=== PATIENT | male | born 1940 | race Caucasian/White ===

== ENCOUNTER 2016-04-16 14:00 | Emergency (ER) | payer MEDICARE ==
[2015-09-25 12:52] VITALS: BMI 28.2
[2016-04-16 14:33] LABS: BASOPHILS 0.3 % (0.0-2.0); EOSINOPHILS 0.5 % (0-7); HEMATOCRIT 40.5 % (42.0-54.0); HEMOGLOBIN 13.8 g/dL (13.5-17.5); IMMATURE GRANULOCYTES 0.3 % (0-5); LYMPHOCYTES 18.1 % (15-50); MCH 31.5 pg (26.0-34.0); MCHC 34.1 g/dL (31.0-37.0); MCV 92.5 fL (80.0-100.0); MONOCYTES 5.6 % (2-11); NEUTROPHILS 75.2 % (40-80); PLATELET COUNT 111 10x3/uL (130-400); RBC 4.38 10x6/uL (4.20-6.10); RDW 13.2 % (11.5-14.5); WBC 5.9 10x3/uL (4.8-10.8)
[2016-04-16 14:51] LABS: ALBUMIN 3.8 g/dL (3.4-5.0); ALKALINE PHOSPHATASE 49 U/L (46-116); ALT (SGPT) 33 U/L (10-68); BILIRUBIN - TOTAL 0.77 mg/dL (0.2-1.3); CALC OSMOLALITY 289 mosm/kg (275-300); CALCIUM 9.5 mg/dL (8.5-10.1); CARBON DIOXIDE 24.4 mmol/L (21.0-32.0); CHLORIDE - SERUM 106 mmol/L (98-107); CREATININE - SERUM 1.2 mg/dL (0.6-1.3); POTASSIUM - SERUM 3.8 mmol/L (3.5-5.1); PROTEIN - SERUM 6.8 g/dL (6.4-8.2); SODIUM 143 mmol/L (136-145); UREA NITROGEN 18 mg/dL (7-18); eGFR NON AFRICAN AMERICAN 63 mL/min (90-120)
[2016-04-16 14:53] LABS: GLUCOSE 148 mg/dL (74-106)
[2016-04-16 15:02] LABS: CHOL - HDL RATIO 4.1 ratio (2.3-4.9); CHOLESTEROL, TOTAL 169 mg/dL (0-200); CREATINE KINASE 305 UL (21-232); HDL CHOLESTEROL 41 mg/dL (32-96); LDL CHOLESTEROL 105 mg/dL (0-100); LDL-HDL RATIO 2.6 ratio (1.5-3.5); TRIGLYCERIDE 117 mg/dL (30-200)
[2016-04-16 15:03] LABS: TROPONIN-I < 0.017 ng/mL (0.000-0.060)
== END 2016-04-16 18:48 | disposition home or self-care (01) ==
LOC: D.ER 14:00
PROVIDERS: Emergency Medicine
DX: R07.9 Chest pain, unspecified (principal); R55 Syncope and collapse; R53.1 Weakness; Z95.0 Presence of cardiac pacemaker

== ENCOUNTER 2016-05-06 13:14 | Observation (INO) | payer MEDICARE ==
[~2016-05-06] VITALS: Ht 185.4 cm; Wt 100.2 kg
[2016-05-06 15:34] LABS: BASOPHILS 0.3 % (0.0-2.0); HEMATOCRIT 40.1 % (42.0-54.0); HEMOGLOBIN 13.5 g/dL (13.5-17.5); IMMATURE GRANULOCYTES 0.3 % (0-5); LYMPHOCYTES 19.5 % (15-50); MCH 31.3 pg (26.0-34.0); MCHC 33.7 g/dL (31.0-37.0); MEAN PLATELET VOLUME 10.9 fL (7.4-10.4); MONOCYTES 6.7 % (2-11); NEUTROPHILS 72.2 % (40-80); PLATELET COUNT 129 10x3/uL (130-400); RBC 4.31 10x6/uL (4.20-6.10); RDW 13.1 % (11.5-14.5)
[2016-05-06 16:01] LABS: ALBUMIN 3.6 g/dL (3.4-5.0); ALKALINE PHOSPHATASE 44 U/L (46-116); ALT (SGPT) 31 U/L (10-68); BILIRUBIN - TOTAL 0.46 mg/dL (0.2-1.3); CALC OSMOLALITY 282 mosm/kg (275-300); CALCIUM 8.8 mg/dL (8.5-10.1); CARBON DIOXIDE 25.9 mmol/L (21.0-32.0); CHLORIDE - SERUM 107 mmol/L (98-107); CREATININE - SERUM 1.1 mg/dL (0.6-1.3); POTASSIUM - SERUM 3.7 mmol/L (3.5-5.1); PROTEIN - SERUM 6.6 g/dL (6.4-8.2); SODIUM 142 mmol/L (136-145); UREA NITROGEN 16 mg/dL (7-18); eGFR NON AFRICAN AMERICAN 69 mL/min (90-120)
[2016-05-06 16:03] LABS: GLUCOSE 86 mg/dL (74-106)
[2016-05-06 16:13] LABS: CKMB 3.8 U/L (0.0-3.6); CREATINE KINASE 293 UL (21-232); TROPONIN-I 0.023 ng/mL (0.000-0.060)
--- NOTE | 2016-05-06 18:29 | NUR ---
PATIENT ARRIVED TO UNIT AT THIS TIME VIA GERAGUSTIN FROM ED. PATIENT BEING PLACED ON BED AT THIS TIME VIA JAVA DESIGNER AND ED NURSE. PATIENT AT BEDSIDE. 20 GAUGE TO LEFT HAND. CALL LIGHT WITH IN REACH. RESP EVEN AND UNLABORED. DENIES PAIN. NO DISTRESS UPON ARRIVAL AT THIS TIME.
[2016-05-06 18:34] VITALS: BP 110/89; Ht 185.4 cm; Wt 100.2 kg
[2016-05-06 20:11] VITALS: BP 110/89
[2016-05-07 02:18] VITALS: BP 102/73
--- NOTE | 2016-05-07 06:34 | NUR ---
PT BP 79/43 PULSE [address] CALLED PT INFOMRED TO STAY IN BED AND NOT GET UP AND IF NEEDED TO USE CALL LIGHT FOR ASSISTANCE PT AAOX4 AND PT STATED " YEA THIS HAPPENS TO ME ALOT ESPECCIALLY IF I DONT TAKE MY MEDICATIONS'
--- NOTE | 2016-05-07 06:35 | NUR ---
DR BREAKDOWN PERSON FOR DR PHAN CALLED AND RENARD FOR CALL BACK
[2016-05-07 06:42] VITALS: BP 79/43
--- NOTE | 2016-05-07 06:45 | NUR ---
SPOKE WITH GHULAM STOUT HUMAN RESOURCES BENEFITS ADMINISTRATOR AND ORDERS RECIVED FOR FLUID BOLUS AND FLORINEF TO BE ADMIN, BOLUS STARTED AND INFUSING AND WATING FOR FLORINEF TO ARRIVE TO FLOOR
--- NOTE | 2016-05-07 07:36 | NUR ---
INTRODUCED MYSELF TO PT PRIMARY RN FOR TODAYS SHIFT. PT IS ALERT AND ORIENTED RESTING QUIETLY SITTING UP IN BED. PT WAS HAVING A 500 CC BOLUS THAT JUST FINISHED, FLUSHED AND SL PT. DRSG CDI AND SWAB CAPS IN USE. PTS BP NOW UP TO 116/77 AND HR 99 CONTROLLED A.FIB. PT STATES HE IS HAVING DISCOMFORT IN HIS CHEST AND BLURRY VISION WHICH HAS HAPPENED MULTIPLE TIMES WITH HIS ORTHOSTATIC HYPOTENSION. PT RESTING NOW AND DENIES ANY FURTHER NEEDS AT THIS TIME. CL IN REACH, BED IN LOWEST, SIDE RAILS X2. WILL CPOC.
[2016-05-07 08:00] VITALS: BP 116/77
--- NOTE | 2016-05-07 09:30 | NUR ---
TELEMETRY MONITER TECH NOTIFIED ME OF PTS HR JUMPING BACK UP TO [address]ST HENNING AND HE STATED THAT HE IS AWARE AND THAT HE IS DISCHARGING PT WITH A NEW MED "BETAPACE" AND THAT HE DOESNT NEED ANYTHING ADDITIONAL DONE. TEACHING DONE TO PT AND PT STATES HE IS FEELING FINE. VSS STILL OTHER THAN HR BEING IRREGULAR UP AND DOWN. CL IN REACH, NO FURTHER NEEDS AT THIS TIME. WILL CTM.
[2016-05-07] MEDS ORDERED: COUMADIN6 MG PO (10:34)
[2016-05-07] MEDS ORDERED: MEGACE 20 MG TA20 MG PO (10:35)
[2016-05-07] MEDS ORDERED: GLYCOLAX527 GM PO (10:36)
[2016-05-07] MEDS ORDERED: FLORINEF 0.1 M0.1 MG PO (10:36)
[2016-05-07] MEDS ORDERED: OMEPRAZOLE40 MG PO (10:36)
[2016-05-07] MEDS ORDERED: BETAPACE 120 M120 MG PO (10:38)
--- NOTE | 2016-05-07 11:14 | NUR ---
D/C PTS L.HAND PIV WITH CATHETER TIP FULLY INTACT, CLEANSED WITH ALCOHOL PAD AND PLACED BANDAID. DISCHARGE TEACHING DONE AND PAPERS SIGNED. PT VERBALIZED UNDERSTANDING AND DENIES ANY FURTHER QUESTIONS OR NEEDS. PT COLLECTING HIS BELONGINGS AND IS ON HER WAY FOR TRANSPORTATION. NO FURTHER NEEDS.
[2016-05-07 11:50] VITALS: BP 102/65
--- NOTE | 2016-05-09 11:12 | EC ---
PATIENT:MILADY GOLDSMITH DATE OF SERVICE: 05/06/16 SEX: M MEDICAL RECORD: [id number] DATE OF : 42 LOCATION:D.M2 D.212 AGE OF PATIENT: 76 ADMISSION DATE: 05/06/16 REFERRING PHYSICIAN: INTERPRETING PHYSICIAN: FERNANDO STREET MD ECHOCARDIOGRAM REPORT ECHO CHARGES 4 ECHO COMPLETE CLINICAL DIAGNOSIS: HYPOTENSION ECHOCARDIOGRAPHIC MEASUREMENTS (adult normal given) AC root (d.<3.7cm) 4.1 LV Septum d (<1.2 cm> 1.6 Valve Excursion 2.3 LV Septum (systole) 2.2 Left Atria (s.<4.0cm> 3.6 LVPW d(<1.2cm) 1.4 RV (d.<2.3cm) 2.4 LVPW (sytole) 1.8 LV diastole(<5.6CM) 3.4 MV E-F(>70mm/sec) LV systole 2.6 LVOT Diameter 2.3 MV exc.(>10mm) Est.ejection fraction (50-75%) Pericardial Effusion N DOPPLER: LVIT A E 71.0 LA RVSP 41.0 LVOT 71.0 AOP1/2T Asc. Ao 85.0 RVOT 89.0 RA PA 112 AV Gradient Peak 2.9 AV Mean 1.5 AV Area 4.0 MV Gradient Peak 3.3 MV Mean 1.6 MV Area COMMENTS: Garbage Worker: Morris SOLISOE Internal Medicine Physician Assistant:Rosa Head TAPE# PACS DATE OF SERVICE: 05/07/2016 Echocardiogram FINDINGS: 1. Left ventricular chamber size is upper limits of normal, left ventricular systolic function is moderately reduced. Overall ejection fraction 30% to 35%. 2. Left atrium is within normal limits at 3.6 cm. Right atrium and right ventricular chamber sizes are mildly dilated. 3. Valvular structures have normal structure and motion. ECHOCARDIOGRAM REPORT [id number] MILADY GOLDSMITH 4. Doppler interrogation reveals mild mitral regurgitation, moderate tricuspid regurgitation, no other valvular insufficiency or stenosis and pulmonary systolic pressure is normal estimated at 41 mmHg. 5. No evidence of pericardial effusion or left ventricular thrombus. TRANSINT:[id number] Voice Confirmation ID: [id number] DOCUMENT ID: [id number] FERNANDO STREET MD at 1112 CC: [id number] DICTATION DATE: 05/08/16 1225 SHEET METAL TECHNICIAN: 05/08/16 2218 DIS IN 05/07/16 [facility] [address] [place] [address]
--- NOTE | 2016-05-09 13:36 | DS ---
PATIENT:MILADY GOLDSMITH :42 MEDICAL RECORD: [id number] DISCHARGE SUMMARY ADMISSION DATE: 05/06/16 DISCHARGE DATE: 05/07/16 ADMISSION DATE: 05/06/2016 DISCHARGE DATE: 05/07/2016 IMPRESSION: 1. Atrial fibrillation with rapid ventricular response. 2. Orthostatic hypotension, on Florinef. BRIEF HOSPITAL COURSE: Admitted with atrial fibrillation with RVR, this was abrupt onset, was feeling well prior to. He received IV Cardizem for rate control. Discussed options. He is quite symptomatic with an AFib, cover for CVA with Coumadin therapy. At this point in time, we will start sotalol 120 b.i.d. Hopefully, this will not exacerbate orthostasis, although this may be a give and take situation given his propensity towards ____ function and atrial fib. TRANSINT:[id number] Voice Confirmation ID: [id number] DOCUMENT ID: [id number] YORDY IBRAHIM MD at 1336 CC: [id number] DICTATION DATE: 05/07/16 0835 HYDROGEN POWER PLANT ENGINEER: 05/07/161950 DIS IN 05/07/16 [facility] [address] [place] [address]
== END 2016-05-07 12:00 | disposition home or self-care (01) ==
LOC: D.ER 13:14 → D.M2 17:19 → OBSVTIME 17:19 → D.M2 05-07 12:00
PROVIDERS: Emergency Medicine; ADMIT Internal Medicine Interventional Cardiology
DX: I48.91 Unspecified atrial fibrillation (principal); I95.1 Orthostatic hypotension

== ENCOUNTER 2016-09-27 13:30 | Emergency (ER) | payer MEDICARE ==
[2016-05-06 18:34] VITALS: BMI 28.8
[~2016-09-27 13:30] MED LIST: BETAPACE 120 M120 MG PO; COUMADIN6 MG PO; FLORINEF 0.1 M0.1 MG PO; GLYCOLAX527 GM PO; MEGACE 20 MG TA20 MG PO; OMEPRAZOLE40 MG PO
== END 2016-09-27 15:11 | disposition home or self-care (01) ==
LOC: D.ER 13:30
DX: S70.01XA Contusion of right hip, initial encounter (principal); W01.0XXA Fall on same level from slipping, tripping and stumbling without subsequent striking against object, initial encounter; Y93.89 Activity, other specified; Y92.830 Public park as the place of occurrence of the external cause

== ENCOUNTER 2017-01-27 07:35 | Emergency (ER) | payer MEDICARE ==
[2016-05-06 18:34] VITALS: BMI 28.8
[2017-01-27 08:23] LABS: BASOPHILS 0.6 % (0-2); HEMATOCRIT 39.9 % (42.0-54.0); HEMOGLOBIN 13.8 g/dL (13.5-17.5); IMMATURE GRANULOCYTES 0.2 % (0-5); LYMPHOCYTES 22.7 % (15-50); MCH 32.2 pg (26.0-34.0); MCHC 34.6 g/dL (31.0-37.0); NEUTROPHILS 65.5 % (40-80); RBC 4.29 10x6/uL (4.20-6.10); RDW 13.3 % (11.5-14.5); WBC 5.4 10x3/uL (4.8-10.8)
[2017-01-27 08:29] LABS: PLATELET COUNT 170 10x3/uL (130-400)
[2017-01-27 08:38] LABS: ALBUMIN 3.4 g/dL (3.4-5.0); ALKALINE PHOSPHATASE 65 U/L (46-116); ALT (SGPT) 82 U/L (10-68); BILIRUBIN - TOTAL 0.67 mg/dL (0.2-1.3); CALC OSMOLALITY 283 mosm/kg (275-300); CALCIUM 9.2 mg/dL (8.5-10.1); CARBON DIOXIDE 27.1 mmol/L (21.0-32.0); CHLORIDE - SERUM 108 mmol/L (98-107); GLUCOSE 96 mg/dL (74-106); POTASSIUM - SERUM 3.7 mmol/L (3.5-5.1); PROTEIN - SERUM 6.9 g/dL (6.4-8.2); SODIUM 143 mmol/L (136-145); UREA NITROGEN 11 mg/dL (7-18); eGFR NON AFRICAN AMERICAN 77 mL/min (90-120)
[2017-01-27 08:48] LABS: CHOL - HDL RATIO 4.8 ratio (2.3-4.9); CHOLESTEROL, TOTAL 134 mg/dL (0-200); CKMB 2.3 U/L (0.0-3.6); CREATINE KINASE 172 UL (21-232); HDL CHOLESTEROL 28 mg/dL (32-96); LDL CHOLESTEROL 78 mg/dL (0-100); LDL-HDL RATIO 2.8 ratio (1.5-3.5); PRO BNP 858 pg/mL (0-450); TRIGLYCERIDE 142 mg/dL (30-200); TROPONIN-I 0.016 ng/mL (0.000-0.060)
--- NOTE | 2017-01-30 16:56 | CN ---
PATIENT NAME:MILADY GOLDSMITH MEDICAL RECORD: [id number] : 42 LOCATION:.ER ADMIT DATE: ACCOUNT: [id number] CONSULTING PHYSICIAN: FERNANDO STREET MD REFERRING PHYSICIAN: KHADIJAH MANN MD DATE OF CONSULTATION: 01/27/2017 CARDIOLOGY CONSULT DIAGNOSES: 1. Paroxysmal atrial fibrillation. 2. Sick sinus syndrome. 3. Status post pacemaker. 4. Chest pain, compatible with angina. 5. Coumadin anticoagulation. HISTORY: This is a gentleman with past history of atrial fibrillation, sick sinus syndrome and pacer. No past history of ischemic heart disease. He underwent cardiac catheterization last year, revealing no significant disease. He has been having episodes of chest pressure, but these have been associated with recurrent atrial fibrillation. He is on sotalol 120 mg b.i.d. REVIEW OF SYSTEMS: The patient reports easy bruising but reports no swollen glands. The patient reports no fever, no night sweats, no significant weight gain, no significant weight loss. No significant exercise tolerance. The patient reports no dry eyes, no irritation, no vision change. The patient reports no difficulty hearing and no ear pain. The patient reports no frequent nose bleeds or nose and sinus problems. The patient reports on arm pain on exertion. No shortness of breath while lying down. No history of heart murmur. The patient reports no cough, no wheezing or coughing up blood. The patient reports no abdominal pain, no vomiting. Normal appetite. No diarrhea and not vomiting blood. No nausea and no constipation. The patient reports no incontinence. No difficulty urinating. No hematuria. No increased frequency. Patient reports no muscle aches. No weakness, no arthralgias, no back pain. No swelling of the extremities. The patient reports no abnormal mole, no jaundice, no rashes. Reports no loss of consciousness. No weakness and no numbness. No seizures, dizziness, or headaches. The patient reports no depression, no sleep disturbance, feeling safe in a relationship and no alcohol abuse. The patient reports on fatigue. Reports no runny nose or sinus pressure. No itching, no hives, and no frequent sneezing. PHYSICAL EXAMINATION: GENERAL APPEARANCE: Well-nourished, well-developed, appears stated age. Level of distress, comfortable. PSYCHIATRIC: Mental status, alert, normal affect. Orientation, oriented to time, place and person. EYES: Lids and conjunctiva, noninjected. No discharge, no pallor. ENT: Lips, teeth, gums, normal dentition. Oropharynx, no cyanosis, no pallor. NECK: Carotid arteries, bilateral normal upstroke, no bruits, no thrills. JUGULAR VEINS: No jugular venous pressure or distention. CERVICAL LYMPH NODES: Nontender, nonenlarged. THYROID: Not enlarged. Nontender. No nodules. LUNGS: Respiratory effort, unlabored. CHEST: Normal curvature. No thoracic deformity. No chest wall tenderness. Percussion, resonant. Auscultation, clear. No wheezes, no rales, no rhonchi. CONSULT REPORT [id number] MILADY GOLDSMITH CARDIOVASCULAR: Precordial exam, nondisplaced. No heaves or pericardial thrills. Rate and rhythm, regular. Heart sounds, normal S1, normal S2. No S3, no gallop, no rub. Systolic murmur, not heard. Diastolic murmur, not heard. EXTREMITIES: No cyanosis, no edema. Peripheral pulses, full and equal in all extremities, except as noted. No bruits appreciated. ABDOMEN: Soft, nondistended. Normal aorta. No bruit. Nontender. No masses. Liver, nontender, no hepatomegaly. Spleen, nontender, no splenomegaly. MUSCULOSKELETAL: No joint tenderness. No joint swelling. No erythema. NEUROLOGICAL: Normal gait, normal strength, normal tone. SKIN: Warm and dry. Pacemaker was interrogated. He has been having paroxysmal atrial fibrillation. We will increase the sotalol to 180 mg b.i.d. Follow up with [facility] in 1-2 weeks. TRANSINT:[id number] Voice Confirmation ID: [id number] DOCUMENT ID: [id number] FERNANDO STREET MD at 1656 CC: [id number] DICTATION DATE: 01/27/17 1222 CORRESPONDENCE SPECIALIST: 01/27/17 1326 [facility] [address] [place] [address]
== END 2017-01-27 12:48 | disposition home or self-care (01) ==
LOC: D.ER 07:35
PROVIDERS: Emergency Medicine
DX: R07.9 Chest pain, unspecified (principal); I50.9 Heart failure, unspecified; Z95.0 Presence of cardiac pacemaker; I44.0 Atrioventricular block, first degree

== ENCOUNTER 2017-05-12 21:01 | Inpatient (IN) | payer OTHER ==
[~2017-05-12] VITALS: Ht 185.4 cm; Wt 100.9 kg
--- NOTE | ~2017-05-12 | CN ---
PATIENT NAME:MILADY GOLDSMITH MEDICAL RECORD: [id number] : 42 LOCATION:D. D.2118 ADMIT DATE: 05/15/17 ACCOUNT: [id number] CONSULTING PHYSICIAN: FERNANDO STREET MD REFERRING PHYSICIAN: JIMMIE ADAMES MD DATE OF CONSULTATION: 05/13/2017 CARDIOLOGY CONSULTATION DIAGNOSES: 1. Syncope. 2. Paroxysmal atrial fibrillation. 3. Sick sinus syndrome. 4. Status post pacemaker. 5. Nonischemic cardiomyopathy. HISTORY OF PRESENT ILLNESS: This is a gentleman known to us, followed by Dr. Saldivar. He has a nonischemic cardiomyopathy with ejection fraction in the 30% to 35% range. Cardiac catheterization in 2016 with no significant coronary artery disease. He has had problems with paroxysmal atrial fibrillation. He was previously on Lopressor. He is now on sotalol 120 mg b.i.d. He had 2 episodes of syncope that brought him into the hospital. Initially, he was in atrial fibrillation with rapid ventricular response. He was converted to sinus rhythm. PHYSICAL EXAMINATION: GENERAL APPEARANCE: Well-nourished, well-developed, appears stated age. Level of distress, comfortable. PSYCHIATRIC: Mental status, alert, normal affect. Orientation, oriented to time, place and person. EYES: Lids and conjunctiva, noninjected. No discharge, no pallor. ENT: Lips, teeth, gums, normal dentition. Oropharynx, no cyanosis, no pallor. NECK: Carotid arteries, bilateral normal upstroke, no bruits, no thrills. JUGULAR VEINS: No jugular venous pressure or distention. CERVICAL LYMPH NODES: Nontender, nonenlarged. THYROID: Not enlarged. Nontender. No nodules. LUNGS: Respiratory effort, unlabored. CHEST: Normal curvature. No thoracic deformity. No chest wall tenderness. Percussion, resonant. Auscultation, clear. No wheezes, no rales, no rhonchi. CARDIOVASCULAR: Precordial exam, nondisplaced. No heaves or pericardial thrills. Rate and rhythm, regular. Heart sounds, normal S1, normal S2. No S3, no gallop, no rub. Systolic murmur, not heard. Diastolic murmur, not heard. EXTREMITIES: No cyanosis, no edema. Peripheral pulses, full and equal in all extremities, except as noted. No bruits appreciated. ABDOMEN: Soft, nondistended. Normal aorta. No bruit. Nontender. No masses. Liver, nontender, no hepatomegaly. Spleen, nontender, no splenomegaly. MUSCULOSKELETAL: No joint tenderness. No joint swelling. No erythema. NEUROLOGICAL: Normal gait, normal strength, normal tone. SKIN: Warm and dry. OVERALL IMPRESSION: Syncope, most likely secondary to dysrhythmia. We will interrogate the pacemaker to see if he has complex ventricular dysrhythmia or recurrent atrial fibrillation. We will adjust medications accordingly. TRANSINT:[id number] Voice Confirmation ID: [id number] DOCUMENT ID: [id number] CONSULT REPORT [id number] MILADY GOLDSMITH, FERNANDO MANRIQUE at 1800 CC: [id number] DICTATION DATE: 05/13/17 1014 GRANULATOR OPERATOR: 05/13/17 1220 ADM IN [place] [id number] [place] [id number]
[2017-05-12 21:34] LABS: BASOPHILS 0.2 % (0-2); EOSINOPHILS 1.7 % (0-7); HEMATOCRIT 39.8 % (42.0-54.0); HEMOGLOBIN 13.5 g/dL (13.5-17.5); IMMATURE GRANULOCYTES 0.2 % (0-5); LYMPHOCYTES 8.2 % (15-50); MCH 31.1 pg (26.0-34.0); MCHC 33.9 g/dL (31.0-37.0); MCV 91.7 fL (80.0-100.0); MEAN PLATELET VOLUME 11.3 fL (7.4-10.4); MONOCYTES 7.2 % (2-11); NEUTROPHILS 82.5 % (40-80); RBC 4.34 10x6/uL (4.20-6.10); RDW 13.4 % (11.5-14.5)
[2017-05-12 21:40] LABS: PLATELET COUNT 124 10x3/uL (130-400)
[2017-05-12 21:59] LABS: ALBUMIN 3.9 g/dL (3.4-5.0); ALKALINE PHOSPHATASE 44 U/L (46-116); ALT (SGPT) 24 U/L (10-68); BILIRUBIN - TOTAL 0.74 mg/dL (0.2-1.3); CALC OSMOLALITY 285 mosm/kg (275-300); CALCIUM 9.3 mg/dL (8.5-10.1); CHLORIDE - SERUM 107 mmol/L (98-107); CREATININE - SERUM 1.2 mg/dL (0.6-1.3); GLUCOSE 94 mg/dL (74-106); POTASSIUM - SERUM 3.8 mmol/L (3.5-5.1); SODIUM 143 mmol/L (136-145); UREA NITROGEN 14 mg/dL (7-18); eGFR NON AFRICAN AMERICAN 63 mL/min (90-120)
[2017-05-12 22:05] LABS: INR 2.16 (0.85-1.17); PROTIME 23.4 SECONDS (11.6-15.0)
[2017-05-12 22:06] LABS: D-DIMER-QUANTITATIVE 2.06 ug/mLFEU (0.20-0.54)
[2017-05-12 22:10] LABS: CKMB 3.8 U/L (0.0-3.6); CREATINE KINASE 297 UL (21-232); PRO BNP 600 pg/mL (0-450)
[2017-05-12 22:13] LABS: TROPONIN-I < 0.017 ng/mL (0.000-0.060)
[2017-05-13 03:35] LABS: BASOPHILS 0.1 % (0-2); EOSINOPHILS 0.8 % (0-7); HEMATOCRIT 36.9 % (42.0-54.0); HEMOGLOBIN 12.4 g/dL (13.5-17.5); IMMATURE GRANULOCYTES 0.1 % (0-5); LYMPHOCYTES 7.1 % (15-50); MCH 31.1 pg (26.0-34.0); MCHC 33.6 g/dL (31.0-37.0); MCV 92.5 fL (80.0-100.0); MEAN PLATELET VOLUME 10.7 fL (7.4-10.4); MONOCYTES 6.1 % (2-11); NEUTROPHILS 85.8 % (40-80); PLATELET COUNT 111 10x3/uL (130-400); RBC 3.99 10x6/uL (4.20-6.10); RDW 13.6 % (11.5-14.5); WBC 8.7 10x3/uL (4.8-10.8)
[2017-05-13 04:19] LABS: ALBUMIN 3.6 g/dL (3.4-5.0); ALKALINE PHOSPHATASE 35 U/L (46-116); ALT (SGPT) 24 U/L (10-68); BILIRUBIN - TOTAL 1.01 mg/dL (0.2-1.3); CALC OSMOLALITY 280 mosm/kg (275-300); CALCIUM 8.7 mg/dL (8.5-10.1); CARBON DIOXIDE 28.5 mmol/L (21.0-32.0); CHLORIDE - SERUM 106 mmol/L (98-107); CREATINE KINASE 229 UL (21-232); CREATININE - SERUM 1.3 mg/dL (0.6-1.3); GLUCOSE 94 mg/dL (74-106); MAGNESIUM - SERUM 1.8 mg/dL (1.8-2.4); PHOSPHOROUS 3.5 mg/dL (2.5-4.9); POTASSIUM - SERUM 4.2 mmol/L (3.5-5.1); PROTEIN - SERUM 6.4 g/dL (6.4-8.2); SODIUM 141 mmol/L (136-145); UREA NITROGEN 12 mg/dL (7-18); eGFR NON AFRICAN AMERICAN 57 mL/min (90-120)
[2017-05-13 04:26] LABS: TROPONIN-I < 0.017 ng/mL (0.000-0.060)
[2017-05-13 06:32] LABS: APPEARANCE CLEAR (CLEAR); BILIRUBIN NEGATIVE (NEGATIVE); COLOR YELLOW (YELLOW); GLUCOSE NEGATIVE (NEGATIVE); KETONE NEGATIVE (NEGATIVE); NITRITE NEGATIVE (NEGATIVE); PROTEIN NEGATIVE (NEGATIVE); UROBILINOGEN NORMAL (NORMAL)
[2017-05-13 10:07] LABS: CREATINE KINASE 236 UL (21-232); TROPONIN-I < 0.017 ng/mL (0.000-0.060)
[2017-05-13 10:11] LABS: CKMB 1.8 U/L (0.0-3.6)
[2017-05-13 16:00] LABS: CREATINE KINASE 259 UL (21-232)
[2017-05-13 16:08] LABS: CKMB 2.2 U/L (0.0-3.6); TROPONIN-I < 0.017 ng/mL (0.000-0.060)
[2017-05-13 17:27] LABS: INR 2.19 (0.85-1.17); PROTIME 23.7 SECONDS (11.6-15.0)
[2017-05-13 23:09] VITALS: BP 109/69; Ht 185.4 cm; Wt 100.9 kg
[2017-05-14] VITALS: BP 149/99
[2017-05-14 04:00] VITALS: BP 140/80
[2017-05-14] MEDS ORDERED: CLEOCIN HCL150 MG PO (04:39)
[2017-05-14] MEDS ORDERED: OMNICEF300 MG PO (04:40)
[2017-05-14] MEDS ORDERED: IPRATROPIUM BR42 MCG NASAL (04:40)
[2017-05-14 05:38] LABS: BASOPHILS 0.1 % (0-2); EOSINOPHILS 0.5 % (0-7); HEMATOCRIT 37.2 % (42.0-54.0); HEMOGLOBIN 12.3 g/dL (13.5-17.5); IMMATURE GRANULOCYTES 0.2 % (0-5); LYMPHOCYTES 7.5 % (15-50); MCH 30.9 pg (26.0-34.0); MCHC 33.1 g/dL (31.0-37.0); MCV 93.5 fL (80.0-100.0); MEAN PLATELET VOLUME 11.3 fL (7.4-10.4); MONOCYTES 7.2 % (2-11); NEUTROPHILS 84.5 % (40-80); PLATELET COUNT 110 10x3/uL (130-400); RBC 3.98 10x6/uL (4.20-6.10); RDW 13.9 % (11.5-14.5); WBC 8.3 10x3/uL (4.8-10.8)
[2017-05-14 05:46] LABS: INR 1.94 (0.85-1.17); PROTIME 21.6 SECONDS (11.6-15.0)
[2017-05-14 06:03] LABS: ALBUMIN 3.3 g/dL (3.4-5.0); ANION GAP 13.3 mmol/L (8-16); BILIRUBIN - TOTAL 0.8 mg/dL (0.2-1.3); CALCIUM 8.2 mg/dL (8.5-10.1); CARBON DIOXIDE 24.1 mmol/L (21.0-32.0); CREATININE - SERUM 1.1 mg/dL (0.6-1.3); PROTEIN - SERUM 6.2 g/dL (6.4-8.2)
[2017-05-14 06:14] LABS: POTASSIUM - SERUM 3.4 mmol/L (3.5-5.1)
[2017-05-14 10:26] VITALS: BP 130/88
[2017-05-14 13:06] VITALS: BP 134/68
[2017-05-14 20:00] VITALS: BP 122/75
[2017-05-15] VITALS: BP 105/71
[2017-05-15 04:00] VITALS: BP 104/77
[2017-05-15 05:02] LABS: BASOPHILS 0.3 % (0-2); EOSINOPHILS 1.7 % (0-7); HEMATOCRIT 35.4 % (42.0-54.0); HEMOGLOBIN 11.8 g/dL (13.5-17.5); IMMATURE GRANULOCYTES 0.1 % (0-5); LYMPHOCYTES 11.4 % (15-50); MCH 30.9 pg (26.0-34.0); MCHC 33.3 g/dL (31.0-37.0); MCV 92.7 fL (80.0-100.0); MEAN PLATELET VOLUME 11.4 fL (7.4-10.4); MONOCYTES 10.1 % (2-11); NEUTROPHILS 76.4 % (40-80); PLATELET COUNT 121 10x3/uL (130-400); RBC 3.82 10x6/uL (4.20-6.10); RDW 13.9 % (11.5-14.5); WBC 6.9 10x3/uL (4.8-10.8)
[2017-05-15 05:08] LABS: INR 1.63 (0.85-1.17); PROTIME 18.8 SECONDS (11.6-15.0)
[2017-05-15 05:20] LABS: ANION GAP 16.8 mmol/L (8-16); BILIRUBIN - TOTAL 0.73 mg/dL (0.2-1.3); CALCIUM 8.2 mg/dL (8.5-10.1); CARBON DIOXIDE 20.6 mmol/L (21.0-32.0); CREATININE - SERUM 1.2 mg/dL (0.6-1.3); POTASSIUM - SERUM 3.4 mmol/L (3.5-5.1)
[2017-05-15 09:10] VITALS: BP 103/64
[2017-05-15 12:55] VITALS: BP 108/69
[2017-05-15 18:30] VITALS: BP 105/85
[2017-05-15 21:18] VITALS: BP 93/57
[2017-05-16 05:26] LABS: BASOPHILS 0.2 % (0-2); EOSINOPHILS 5.3 % (0-7); HEMOGLOBIN 11.4 g/dL (13.5-17.5); LYMPHOCYTES 17.9 % (15-50); MCH 31.1 pg (26.0-34.0); MCHC 33.5 g/dL (31.0-37.0); MCV 92.9 fL (80.0-100.0); MEAN PLATELET VOLUME 11.3 fL (7.4-10.4); MONOCYTES 15.7 % (2-11); NEUTROPHILS 60.9 % (40-80); PLATELET COUNT 115 10x3/uL (130-400); RBC 3.66 10x6/uL (4.20-6.10); RDW 13.8 % (11.5-14.5)
[2017-05-16 05:27] LABS: WBC 4.9 10x3/uL (4.8-10.8)
[2017-05-16 05:36] LABS: INR 1.65 (0.85-1.17)
[2017-05-16 05:40] LABS: ALBUMIN 2.7 g/dL (3.4-5.0); ANION GAP 13.2 mmol/L (8-16); BILIRUBIN - TOTAL 0.49 mg/dL (0.2-1.3); CARBON DIOXIDE 23.5 mmol/L (21.0-32.0); CREATININE - SERUM 1.1 mg/dL (0.6-1.3); POTASSIUM - SERUM 3.7 mmol/L (3.5-5.1); PROTEIN - SERUM 5.7 g/dL (6.4-8.2)
[2017-05-16 06:37] VITALS: BP 107/57
[2017-05-16 10:06] VITALS: BP 155/94
[2017-05-16] MEDS ORDERED: LANOXIN125 MCG PO (12:30)
[2017-05-16 12:31] VITALS: BP 135/78
== END 2017-05-16 18:20 | disposition home or self-care (01) | DRG 310 ==
LOC: D.ER 21:01 → D.M2 23:15 → D.SDCHOLD 23:15 → OBSVTIME 23:15 → D.SDCHOLD 23:15 → D.M2 05-13 18:42
PROVIDERS: Family Medicine
PROC: 0HQ1XZZ Repair Face Skin, External Approach (ICD-10-PCS; principal; 2017-05-12)
DX: I48.0 Paroxysmal atrial fibrillation (principal); Z79.01 Long term (current) use of anticoagulants; S01.81XA Laceration without foreign body of other part of head, initial encounter; W18.30XA Fall on same level, unspecified, initial encounter; R55 Syncope and collapse; Z85.46 Personal history of malignant neoplasm of prostate; Z95.0 Presence of cardiac pacemaker; I42.9 Cardiomyopathy, unspecified; M47.812 Spondylosis without myelopathy or radiculopathy, cervical region; E03.9 Hypothyroidism, unspecified

== ENCOUNTER 2017-12-28 16:07 | Inpatient (IN) | payer MEDICARE ==
[~2017-12-28] VITALS: Ht 185.4 cm; Wt 100.7 kg
--- NOTE | ~2017-12-28 | RHP ---
PATIENT: MILADY GOLDSMITH MEDICAL RECORD: [id number] ACCOUNT: [id number] LOCATION:[id number] : 42 ADMISSION DATE: 12/28/17 REHABILITATION HISTORY AND PHYSICAL EXAMINATION POST ADMISSION PHYSICIAN EXAMINATION DATE OF ADMISSION: 12/28/2017. ADMITTING DIAGNOSIS: Middle cerebral artery embolic infarct. HISTORY OF PRESENT ILLNESS: The patient is a gentleman admitted to the inpatient rehab with a right middle cerebral artery infarct, onset apparently was post-procedural. He had a pulmonary vein isolation on 12/22/2017. He had focal weakness occurring acutely with the staff noticing left facial droop, left arm weakness, dysarthria, and generalized weakness. The patient has a neurologist, Dr. Bazzi over in [facility]. 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 The patient has got paroxysmal atrial fib. The patient has remained on Eliquis post-procedure. CT of his head reportedly revealed no hemorrhagic or ischemic disease. CTA on 12/23/2017 without any type of vascular occlusion or significant stenosis. MRI done at [facility] in [place] on 12/23/2017 was verbally read by physician there noted to have apparent embolic strokes and anterior and posterior circulation. Dr. Maldonado noted on 12/22/2017 that the report of embolic strokes in the anterior and posterior circulation with examination suggesting possibly a left cerebellar stroke as well as middle cerebral artery or left cerebral or brain stem events producing left-sided weakness. Dr. Maldonado made the recommendation to continue Eliquis, undergo intensive PT, OT and speech therapy if necessary under MD supervision to maximize functional independence prior to returning home. On 12/25/2017, he sustained a fall while getting out of bed and now has abrasions to his right upper extremity and his face. He did not have a loss of conscious. On 12/27/2017 and 12/28/2017, he was found to be in and out of sinus tachycardia with occasional PVCs. He remains on command pacer at this time, would definitely need inpatient rehab to get back to his prior level of function or be able to return home and do activities of daily living. COMORBIDITIES: Include paroxysmal atrial fib, coronary artery disease, hypertension, orthostatic hypotension, hyperlipidemia, thrombocytopenia, arthritis, left-sided weakness, generalized weakness, facial drooping, peripheral neuropathy, and artificial sphincter placement. PAST MEDICAL HISTORY: Significant for arthritis, left-sided weakness, generalized weakness, facial droop, and gastroesophageal reflux disease. PAST SURGICAL HISTORY: Includes pacemaker placement, ablation for SVT, prostatectomy. He has had an esophageal stricture, left knee replacement, and right knee replacement. ALLERGIES: No known drug allergies. CURRENT MEDICATIONS: Include Mag-Ox 400 mg daily, vitamin D 1000 units daily. He is on triamterene 10 mg t.i.d., PhosLo 667 mg daily. He is on Protonix 40 mg daily, ascorbic acid 1000 mg daily, Oorp-Ah-Exjr 0.5 mg daily. He is on Colace 100 mg daily, Metamucil packet b.i.d., glucosamine 1500 mg b.i.d., potassium 10 mEq b.i.d., Antivert 25 mg b.i.d. p.r.n., Florinef 0.1 mg b.i.d., Eliquis 5 mg HISTORY AND PHYSICAL [id number] MILADY GOLDSMITH b.i.d., metoprolol 25 mg b.i.d., Lasix 20 mg b.i.d., polyethylene glycol 17 grams in 8 ounces of water daily, and amiodarone 200 mg b.i.d. He is on a tapering dosage of this. HABITS: No alcohol or tobacco use. FAMILY HISTORY: Noncontributory. SOCIAL HISTORY: The patient hopes to return back home and get back to his prior level of functioning. REVIEW OF SYSTEMS: GENERAL: Does complain of weakness, mainly on one side. HEENT: Denies cold, cough, or congestion. CARDIOVASCULAR: Denies chest pain. PHYSICAL EXAMINATION: VITAL SIGNS: Stable, afebrile. GENERAL: A well-developed gentleman in no acute distress, alert upon exam. HEENT: Normocephalic and atraumatic. Mucosa moist. NECK: Supple. No lymphadenopathy. LUNGS: Clear at this time. HEART: Regular rate and rhythm at this time. He is not tachycardic. ABDOMEN: Benign. EXTREMITIES: No clubbing, cyanosis or edema. NEUROLOGIC: Consistent with weakness, mainly on one side. LABORATORY DATA: His white count was 7.5, H&H 13 and 41 and platelet count was noted to be 137. Sodium 140, potassium 3.9, BUN and creatinine of 15 and 1.4 and blood sugar is noted to be 115. ASSESSMENT: This is a 77-year-old gentleman admitted to the rehab with a working diagnosis of CVA. The patient has potential to make improvement. We instituted the following multidisciplinary therapies to include, but not limited to physical, occupational, respiratory, speech, nutritional services, prosthetics and orthotics. Given his complex medical condition and risk for more complications, rehabilitation services cannot be provided at a low level of care such as a skilled nurse facility. PLAN: 1. Admit to [facility] rehab for intensive inpatient therapy to include the following disciplines: A. Physical therapy to improve gait, all transfer skills and bed mobility to a modified independent level. B. Occupational therapy to improve activities of daily living to a modified independent level. C. Case management to assist with discharge planning and placement options. D. Nutrition to assist with nutritional needs. E. Rehabilitation nursing to assist in monitoring the patient's underlying medical conditions and to assist with any type of bowel or bladder management. 2. The patient's current medication and medical care will be continued. 3. The patient will be placed on standard fall precautions. 4. The estimated length of stay is approximately 7-10 days. 5. We will discuss this patient during care team staff meeting tomorrow. We will go ahead and make sure that speech therapy is involved in this case. We HISTORY AND PHYSICAL [id number] MILADY GOLDSMITH will continue on appropriate medications at this time and we will follow up again in the a.m. TRANSINT:[id number] Voice Confirmation ID: [id number] DOCUMENT ID: [id number] CALEB notes whether there has been none or any medical/functional change since admission: - No change since preadmission screen. CALEB attests patient continues to be appropriate for IRF: - Continues to be appropriate. BASSAM ELLER MD at 1244 CC: [id number] DICTATION DATE: 12/29/17830 JUTE BAG SEWER: 12/29/17847 ADM IN [facility] [address] [place] [id number]
[~2017-12-28 16:07] MED LIST changes: +CLEOCIN HCL150 MG PO; +IPRATROPIUM BR42 MCG NASAL; +LANOXIN125 MCG PO; +OMNICEF300 MG PO
[2017-12-28 17:34] VITALS: BP 144/99; BMI 29.3
[2017-12-29 06:29] LABS: BASOPHILS 0.5 % (0-2); EOSINOPHILS 2.3 % (0-7); HEMATOCRIT 40.8 % (42.0-54.0); HEMOGLOBIN 13.2 g/dL (13.5-17.5); IMMATURE GRANULOCYTES 0.3 % (0-5); LYMPHOCYTES 13.3 % (15-50); MCH 28.2 pg (26.0-34.0); MCHC 32.4 g/dL (31.0-37.0); MCV 87.2 fL (80.0-100.0); MEAN PLATELET VOLUME 10.5 fL (7.4-10.4); MONOCYTES 12.5 % (2-11); NEUTROPHILS 71.1 % (40-80); PLATELET COUNT 137 10x3/uL (130-400); RBC 4.68 10x6/uL (4.20-6.10); RDW 15.5 % (11.5-14.5); WBC 7.5 10x3/uL (4.8-10.8)
[2017-12-29 07:00] VITALS: BP 118/81
[2017-12-29 07:02] LABS: CALCIUM 8.7 mg/dL (8.5-10.1); CARBON DIOXIDE 24.9 mmol/L (21.0-32.0); CREATININE - SERUM 1.4 mg/dL (0.6-1.3); POTASSIUM - SERUM 3.9 mmol/L (3.5-5.1)
[2017-12-29 13:18] VITALS: Ht 185.4 cm; Wt 100.7 kg
[2017-12-29 20:09] VITALS: BP 117/75
[2017-12-30 06:40] LABS: BASOPHILS 0.3 % (0-2); EOSINOPHILS 1.1 % (0-7); HEMATOCRIT 39.6 % (42.0-54.0); HEMOGLOBIN 12.9 g/dL (13.5-17.5); IMMATURE GRANULOCYTES 0.4 % (0-5); LYMPHOCYTES 13.3 % (15-50); MCHC 32.6 g/dL (31.0-37.0); MCV 86.1 fL (80.0-100.0); MEAN PLATELET VOLUME 11.1 fL (7.4-10.4); MONOCYTES 11.8 % (2-11); NEUTROPHILS 73.1 % (40-80); PLATELET COUNT 157 10x3/uL (130-400); RDW 15.6 % (11.5-14.5); WBC 7.9 10x3/uL (4.8-10.8)
[2017-12-30 06:49] LABS: ANION GAP 15.3 mmol/L (8-16); CALCIUM 8.6 mg/dL (8.5-10.1); CARBON DIOXIDE 24.6 mmol/L (21.0-32.0); CHOL - HDL RATIO 3.4 ratio (2.3-4.9); CREATININE - SERUM 1.4 mg/dL (0.6-1.3); POTASSIUM - SERUM 3.9 mmol/L (3.5-5.1)
[2017-12-30 08:27] VITALS: BP 148/89
[2017-12-30 20:29] VITALS: BP 128/85
[2017-12-31 08:00] VITALS: BP 151/105
[2017-12-31 19:00] VITALS: BP 128/81
[2018-01-01 07:07] LABS: BASOPHILS 0.1 % (0-2); EOSINOPHILS 1.8 % (0-7); HEMATOCRIT 39.2 % (42.0-54.0); HEMOGLOBIN 12.6 g/dL (13.5-17.5); IMMATURE GRANULOCYTES 0.3 % (0-5); LYMPHOCYTES 13.2 % (15-50); MCH 27.8 pg (26.0-34.0); MCHC 32.1 g/dL (31.0-37.0); MCV 86.5 fL (80.0-100.0); MEAN PLATELET VOLUME 10.7 fL (7.4-10.4); MONOCYTES 8.6 % (2-11); PLATELET COUNT 159 10x3/uL (130-400); RBC 4.53 10x6/uL (4.20-6.10); RDW 15.6 % (11.5-14.5); WBC 7.1 10x3/uL (4.8-10.8)
[2018-01-01 07:22] LABS: ANION GAP 13.9 mmol/L (8-16); CALCIUM 8.5 mg/dL (8.5-10.1); CARBON DIOXIDE 23.3 mmol/L (21.0-32.0); CREATININE - SERUM 1.4 mg/dL (0.6-1.3); POTASSIUM - SERUM 4.2 mmol/L (3.5-5.1)
[2018-01-01 08:00] VITALS: BP 125/80
[2018-01-01 19:00] VITALS: BP 151/94
[2018-01-02 11:48] VITALS: BP 135/83
[2018-01-02 12:00] VITALS: BP 134/87
[2018-01-03 10:32] VITALS: BP 146/91
[2018-01-03 21:44] VITALS: BP 129/84
[2018-01-04 06:37] LABS: BASOPHILS 0.4 % (0-2); EOSINOPHILS 1.8 % (0-7); HEMATOCRIT 39.6 % (42.0-54.0); HEMOGLOBIN 12.7 g/dL (13.5-17.5); IMMATURE GRANULOCYTES 0.3 % (0-5); LYMPHOCYTES 13.5 % (15-50); MCH 27.9 pg (26.0-34.0); MCHC 32.1 g/dL (31.0-37.0); MCV 86.8 fL (80.0-100.0); MEAN PLATELET VOLUME 10.5 fL (7.4-10.4); MONOCYTES 8.7 % (2-11); NEUTROPHILS 75.3 % (40-80); PLATELET COUNT 171 10x3/uL (130-400); RBC 4.56 10x6/uL (4.20-6.10); RDW 15.9 % (11.5-14.5); WBC 7.2 10x3/uL (4.8-10.8)
[2018-01-04 06:51] LABS: ANION GAP 14.5 mmol/L (8-16); CALCIUM 8.8 mg/dL (8.5-10.1); CREATININE - SERUM 1.4 mg/dL (0.6-1.3); POTASSIUM - SERUM 4.5 mmol/L (3.5-5.1)
[2018-01-04 08:00] VITALS: BP 129/78
[2018-01-04 19:31] VITALS: BP 138/91
[2018-01-05 08:00] VITALS: BP 145/93
[2018-01-05 19:00] VITALS: BP 126/80
[2018-01-06 06:38] LABS: BASOPHILS 0.2 % (0-2); EOSINOPHILS 1.8 % (0-7); HEMATOCRIT 42.2 % (42.0-54.0); HEMOGLOBIN 13.6 g/dL (13.5-17.5); IMMATURE GRANULOCYTES 0.2 % (0-5); MCHC 32.2 g/dL (31.0-37.0); MCV 86.8 fL (80.0-100.0); MEAN PLATELET VOLUME 10.5 fL (7.4-10.4); MONOCYTES 8.7 % (2-11); NEUTROPHILS 73.1 % (40-80); PLATELET COUNT 174 10x3/uL (130-400); RBC 4.86 10x6/uL (4.20-6.10); RDW 15.7 % (11.5-14.5)
[2018-01-06 06:54] LABS: ANION GAP 13.3 mmol/L (8-16); CARBON DIOXIDE 25.4 mmol/L (21.0-32.0); CREATININE - SERUM 1.4 mg/dL (0.6-1.3); POTASSIUM - SERUM 4.7 mmol/L (3.5-5.1)
[2018-01-06 08:00] VITALS: BP 128/85
[2018-01-06 20:31] VITALS: BP 132/87
[2018-01-07 08:00] VITALS: BP 115/69
[2018-01-07 19:00] VITALS: BP 144/90
[2018-01-08 07:04] LABS: BASOPHILS 0.2 % (0-2); EOSINOPHILS 2.1 % (0-7); HEMATOCRIT 40.7 % (42.0-54.0); HEMOGLOBIN 13.2 g/dL (13.5-17.5); IMMATURE GRANULOCYTES 0.2 % (0-5); LYMPHOCYTES 17.4 % (15-50); MCH 28.1 pg (26.0-34.0); MCHC 32.4 g/dL (31.0-37.0); MCV 86.8 fL (80.0-100.0); MEAN PLATELET VOLUME 10.6 fL (7.4-10.4); MONOCYTES 7.9 % (2-11); NEUTROPHILS 72.2 % (40-80); PLATELET COUNT 193 10x3/uL (130-400); RBC 4.69 10x6/uL (4.20-6.10); RDW 15.7 % (11.5-14.5); WBC 5.7 10x3/uL (4.8-10.8)
[2018-01-08 07:22] LABS: ANION GAP 12.5 mmol/L (8-16); CALCIUM 8.7 mg/dL (8.5-10.1); CARBON DIOXIDE 26.1 mmol/L (21.0-32.0); CREATININE - SERUM 1.3 mg/dL (0.6-1.3); POTASSIUM - SERUM 4.6 mmol/L (3.5-5.1)
[2018-01-08 08:00] VITALS: BP 132/67
[2018-01-08 20:15] VITALS: BP 120/76
[2018-01-09 19:35] VITALS: BP 128/88
[2018-01-10 08:00] VITALS: BP 144/86
[2018-01-10 19:40] VITALS: BP 103/58
[2018-01-11 04:49] LABS: BASOPHILS 0.5 % (0-2); EOSINOPHILS 1.6 % (0-7); HEMATOCRIT 42.7 % (42.0-54.0); HEMOGLOBIN 13.8 g/dL (13.5-17.5); IMMATURE GRANULOCYTES 0.2 % (0-5); LYMPHOCYTES 17.3 % (15-50); MCH 28.2 pg (26.0-34.0); MCHC 32.3 g/dL (31.0-37.0); MCV 87.3 fL (80.0-100.0); MEAN PLATELET VOLUME 10.7 fL (7.4-10.4); NEUTROPHILS 69.4 % (40-80); PLATELET COUNT 182 10x3/uL (130-400); RBC 4.89 10x6/uL (4.20-6.10); RDW 15.9 % (11.5-14.5); WBC 5.7 10x3/uL (4.8-10.8)
[2018-01-11 05:03] LABS: ANION GAP 13.3 mmol/L (8-16); CALCIUM 8.7 mg/dL (8.5-10.1); CARBON DIOXIDE 24.6 mmol/L (21.0-32.0); CREATININE - SERUM 1.2 mg/dL (0.6-1.3); POTASSIUM - SERUM 4.9 mmol/L (3.5-5.1)
[2018-01-11 08:00] VITALS: BP 129/93
[2018-01-11] MEDS ORDERED: ELIQUIS5 MG PO (09:07)
[2018-01-11] MEDS ORDERED: HYDROCODON-ACE1 EAC7 PO (09:08)
[2018-01-11] MEDS ORDERED: LASIX20 MG PO (09:08)
[2018-01-11] MEDS ORDERED: CORDARONE PO (09:08)
[2018-01-11] MEDS ORDERED: PHOSLO667 MG PO (09:08)
[2018-01-11] MEDS ORDERED: TOPROL XL25 MG PO (09:08)
[2018-01-11] MEDS ORDERED: REQUIP0.25 MG PO (09:08)
[2018-01-11] MEDS ORDERED: K-TAB10 MEQ PO (09:09)
[2018-01-11 19:00] VITALS: BP 119/63; BP 145/88
[2018-01-12 08:00] VITALS: BP 133/76
== END 2018-01-12 13:11 | disposition home health service (06) | DRG 57 ==
LOC: D.REHAB 16:07
PROVIDERS: Emergency Medicine
DX: I69.354 Hemiplegia and hemiparesis following cerebral infarction affecting left non-dominant side (principal); I48.0 Paroxysmal atrial fibrillation; I25.10 Atherosclerotic heart disease of native coronary artery without angina pectoris; I10 Essential (primary) hypertension; I95.1 Orthostatic hypotension; E78.5 Hyperlipidemia, unspecified; D69.6 Thrombocytopenia, unspecified; M19.90 Unspecified osteoarthritis, unspecified site; R53.1 Weakness; R29.810 Facial weakness; G62.9 Polyneuropathy, unspecified; K21.9 Gastro-esophageal reflux disease without esophagitis

== ENCOUNTER → 2018-01-15 15:50 | Outpatient (CLI) | payer OTHER ==
[2017-12-29 13:18] VITALS: BMI 29.2
[~2018-01-15 15:50] MED LIST changes: +CORDARONE PO; +ELIQUIS5 MG PO; +HYDROCODON-ACE1 EAC7 PO; +K-TAB10 MEQ PO; +LASIX20 MG PO; +PHOSLO667 MG PO; +REQUIP0.25 MG PO; +TOPROL XL25 MG PO
[2018-01-15 18:15] LABS: ALBUMIN 4.3 g/dL (3.4-5.0); ANION GAP 17.2 mmol/L (8-16); BILIRUBIN - TOTAL 1.63 mg/dL (0.2-1.3); CALCIUM 9.8 mg/dL (8.5-10.1); CARBON DIOXIDE 27.5 mmol/L (21.0-32.0); CHOL - HDL RATIO 3.3 ratio (2.3-4.9); CREATININE - SERUM 1.4 mg/dL (0.6-1.3); LDL-HDL RATIO 1.9 ratio (1.5-3.5); POTASSIUM - SERUM 4.7 mmol/L (3.5-5.1); PROTEIN - SERUM 7.8 g/dL (6.4-8.2)
== END | disposition home or self-care (01) ==
LOC: D.LABREF 15:50
PROVIDERS: Family Medicine
DX: I63.9 Cerebral infarction, unspecified (principal)

== ENCOUNTER 2018-03-24 10:13 | Emergency (ER) | payer OTHER ==
[~2018-03-24] VITALS: Ht 185.4 cm; Wt 98.4 kg
--- NOTE | ~2018-03-24 | CN ---
PATIENT NAME:MILADY GOLDSMITH MEDICAL RECORD: [id number] : 42 LOCATION:.ER ADMIT DATE: ACCOUNT: [id number] CONSULTING PHYSICIAN: FERNANDO STREET MD REFERRING PHYSICIAN: GONZALES BENITO MD DATE OF CONSULTATION: 03/24/2018 CARDIOLOGY CONSULTATION DIAGNOSES: 1. Near syncope. 2. Abnormal ECG. 3. Paroxysmal atrial fibrillation. 4. Status post ablation. 5. Orthostasis. HISTORY OF PRESENT ILLNESS: This is a gentleman who has had syncopal episodes since May. He has been worked up at the [facility]. He is found to have paroxysmal atrial fibrillation. He underwent an AFib ablation last week. His EKG is abnormal with ST-T abnormalities anterolaterally; however, he had a cardiac catheterization within last 90 days, revealing no significant coronary artery disease. He does have a [employer] pacemaker as well. PHYSICAL EXAMINATION: GENERAL APPEARANCE: Well-nourished, well-developed, appears stated age. Level of distress, comfortable. PSYCHIATRIC: Mental status, alert, normal affect. Orientation, oriented to time, place and person. EYES: Lids and conjunctiva, noninjected. No discharge, no pallor. ENT: Lips, teeth, gums, normal dentition. Oropharynx, no cyanosis, no pallor. NECK: Carotid arteries, bilateral normal upstroke, no bruits, no thrills. JUGULAR VEINS: No jugular venous pressure or distention. CERVICAL LYMPH NODES: Nontender, nonenlarged. THYROID: Not enlarged. Nontender. No nodules. LUNGS: Respiratory effort, unlabored. CHEST: Normal curvature. No thoracic deformity. No chest wall tenderness. Percussion, resonant. Auscultation, clear. No wheezes, no rales, no rhonchi. CARDIOVASCULAR: Precordial exam, nondisplaced. No heaves or pericardial thrills. Rate and rhythm, regular. Heart sounds, normal S1, normal S2. No S3, no gallop, no rub. Systolic murmur, not heard. Diastolic murmur, not heard. EXTREMITIES: No cyanosis, no edema. Peripheral pulses, full and equal in all extremities, except as noted. No bruits appreciated. ABDOMEN: Soft, nondistended. Normal aorta. No bruit. Nontender. No masses. Liver, nontender, no hepatomegaly. Spleen, nontender, no splenomegaly. MUSCULOSKELETAL: No joint tenderness. No joint swelling. No erythema. NEUROLOGICAL: Normal gait, normal strength, normal tone. SKIN: Warm and dry. OVERALL IMPRESSION: Ongoing episodes of orthostasis with near syncope. He is already on midodrine. We will check his pacemaker to make sure he has no acute dysrhythmia that would explain that, most likely this is just the same problem that is being worked on by the [facility]. 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 TRANSINT:[id number] Voice Confirmation ID: [id number] DOCUMENT ID: [id number] CONSULT REPORT [id number] MILADY GOLDSMITH JEFFREY MD CC: [id number] DICTATION DATE: 03/24/18 1026 MEDIA THEORIST AND AUTHOR OF: 03/24/18 1209 [facility] [address] [place] [address]
--- NOTE | ~2018-03-24 | EC ---
PATIENT:MILADY GOLDSMITH DATE OF SERVICE: 03/24/18 SEX: M MEDICAL RECORD: [id number] DATE OF : 42 LOCATION:D.ER AGE OF PATIENT: 78 ADMISSION DATE: 03/24/18 REFERRING PHYSICIAN: INTERPRETING PHYSICIAN: FERNANDO MORELAND MD ECHOCARDIOGRAM REPORT ECHO CHARGES 4 ECHO COMPLETE Date: 03/24/18 CLINICAL DIAGNOSIS: SYNCOPE ECHOCARDIOGRAPHIC MEASUREMENTS (adult normal given) AC root (d.<3.7cm) 4.3 cm LV Septum d (<1.2 cm> 1.9 cm Valve Excursion 2.4 cm LV Septum (systole) 2.2 cm Left Atria (s.<4.0cm> 3.1 cm LVPW d(<1.2cm) 1.9 cm RV (d.<2.3cm) 2.3 cm LVPW (sytole) 2.3 cm LV diastole(<5.6CM) 4.0 cm MV E-F(>70mm/sec) cm LV systole 2.6 cm LVOT Diameter 2.3 cm MV exc.(>10mm) cm Est.ejection fraction (50-75%) % DOPPLER: LVIT cm/sec A 30.0 cm/sec E 48.0 cm/sec LA cm/sec RVSP 36.1 mmHg LVOT 62.0 cm/sec AOP1/2T m/s Asc. Ao 84.0 cm/sec RVOT 81.0 cm/sec RA cm/sec PA 89.0 cm/sec AV Gradient Peak 2.9 mmHg AV Mean 1.6 mmHg AV Area 3.1 cm MV Gradient Peak 2.3 mmHg MV Mean 0.72 mmHg MV Area cm COMMENTS: Information Technology Account Manager: Morris SOLISOE Broadcast Correspondent: 1 Dr. Moreland TAPE# PACS Pericardial Effusion Y DATE OF SERVICE: 03/24/2018 FINDINGS: 1. Left ventricular chamber size is within normal limits. Left ventricular systolic function is normal. Overall ejection fraction is estimated at 55%. 2. Left atrium is within normal limits at 3.1 cm. Right atrium and right ventricular chamber sizes are mildly dilated. 3. Valvular structures have normal structure and motion. 4. Doppler interrogation reveals mild aortic insufficiency, mild mitral regurgitation, and moderate tricuspid regurgitation. No other valvular ECHOCARDIOGRAM REPORT [id number] MILADY GOLDSMITH insufficiency or stenosis. Pulmonary systolic pressure is estimated at 36 mmHg. 5. Small pericardial effusion is present. This is not hemodynamically significant. No evidence of left ventricular thrombus. TRANSINT:[id number] Voice Confirmation ID: [id number] DOCUMENT ID: [id number] FERNANDO MORELAND MD CC: [id number] DICTATION DATE: 03/26/18 1241 CAR MECHANIC: 03/26/18 1615 DEP ER 03/24/18 [facility] [address] [place] [id number]
--- NOTE | ~2018-03-24 | MORECARE ---
CASE MANAGEMENT DISCHARGE SUMMARY PATIENT: MILADY GOLDSMITH UNIT: [id number] ADM DATE: AGE: 78 : 42 SEX: M ROOM/BED: AUTHOR: JA OTERO PHYSICIAN: REFERRING PHYSICIAN: GONZALES BENITO MD DATE OF SERVICE: 03/24/18 Discharge Plan Patient Name: MILADY GOLDSMITH Facility: [facility]:[place] : 1940 Planned Disposition: Anticipated Discharge Date: Discharge Date: Expected LOS: 0 Initial Reviewer: [email or web address] Initial Review Date: 03/24/2018 Generated: 03/24/18 2:28 pm Patient Name: MILADY GOLDSMITH Page [id number] at 1328 All edits/amendments must be made on the electronic document DICTATION DATE: 03/24/18 1328 SOAP WORKER: PERCY 03/24/18 1328 RPT#: [id number] DC DATE: STATUS: REG ER [facility] [address] [place] [address] END OF REPORT
--- NOTE | ~2018-03-24 | MORECARE ---
CASE MANAGEMENT DISCHARGE SUMMARY PATIENT: MILADY GOLDSMITH UNIT: [id number] ADM DATE: AGE: 78 : 42 SEX: M ROOM/BED: AUTHOR: JA OTERO PHYSICIAN: REFERRING PHYSICIAN: GONZALES BAH MD DATE OF SERVICE: 03/24/18 Discharge Plan Patient Name: MILADY GOLDSMITH Facility: [facility]:[place] : 1940 Planned Disposition: Anticipated Discharge Date: Discharge Date: 03/24/2018 Expected LOS: 0 Initial Reviewer: ADINA Initial Review Date: 03/24/2018 Generated: 03/24/18 3:35 pm Comments DCP- Discharge Planning Updated by [email or web address]: Joann Vasquez on 03/24/18 1:[address] CM contacted Radha with [facility], in regards to Neurology coverage and bed availability. Radha states [facility] has Neurology and bed availability. Patient will transfer to [facility] via EMS. Dr. Bah spoke w/Radha and ER. Joann Vasquez RN Last DP export: 03/24/18 12:28 Patient Name: MILADY GOLDSMITH Page [id number] at 1435 All edits/amendments must be made on the electronic document DICTATION DATE: 03/24/18 1435 PLASTIC MAKER: PERCY 03/24/18 1435 RPT#: [id number] DC DATE:03/24/18 STATUS: DEP [facility] [address] [place] [address] END OF REPORT
[2018-03-24 10:21] VITALS: Ht 185.4 cm; Wt 98.4 kg
[2018-03-24 11:38] LABS: HEMATOCRIT 41.5 % (42.0-54.0); HEMOGLOBIN 14.1 g/dL (13.5-17.5); LYMPHOCYTES 17.3 % (15-50); MCH 29.3 pg (26.0-34.0); MCV 86.1 fL (80.0-100.0); MEAN PLATELET VOLUME 10.4 fL (7.4-10.4); NEUTROPHILS 74.5 % (40-80); RBC 4.82 10x6/uL (4.20-6.10); RDW 19.4 % (11.5-14.5); WBC 4.2 10x3/uL (4.8-10.8)
[2018-03-24 11:39] LABS: PLATELET COUNT 99 10x3/uL (130-400)
[2018-03-24 11:46] LABS: APTT 31.1 SECONDS (22.8-39.4); INR 1.13 (0.85-1.17)
[2018-03-24 11:52] LABS: ALBUMIN 3.9 g/dL (3.4-5.0); ALKALINE PHOSPHATASE 67 U/L (46-116); ALT (SGPT) 50 U/L (10-68); BILIRUBIN - TOTAL 0.68 mg/dL (0.2-1.3); CALC OSMOLALITY 275 mosm/kg (275-300); CARBON DIOXIDE 27.6 mmol/L (21.0-32.0); CHLORIDE - SERUM 101 mmol/L (98-107); CREATININE - SERUM 1.3 mg/dL (0.6-1.3); POTASSIUM - SERUM 4.6 mmol/L (3.5-5.1); PROTEIN - SERUM 7.6 g/dL (6.4-8.2); SODIUM 137 mmol/L (136-145); UREA NITROGEN 18 mg/dL (7-18); eGFR NON AFRICAN AMERICAN 57 mL/min (90-120)
[2018-03-24 11:54] LABS: GLUCOSE 91 mg/dL (74-106)
[2018-03-24 12:04] LABS: CKMB 6.8 U/L (0.0-3.6); CREATINE KINASE 440 UL (21-232); THYROID STIMULATING HORMONE 49.15 uIU/mL (0.36-3.74); TROPONIN-I 0.019 ng/mL (0.000-0.060)
[2018-03-24 12:45] VITALS: BP 155/88
== END 2018-03-24 14:09 | disposition other institution (70) ==
LOC: D.ER 10:13
PROVIDERS: Family Medicine
DX: I63.9 Cerebral infarction, unspecified (principal); R29.810 Facial weakness; R55 Syncope and collapse; W18.30XA Fall on same level, unspecified, initial encounter; Y93.89 Activity, other specified; Y92.019 Unspecified place in single-family (private) house as the place of occurrence of the external cause; I48.91 Unspecified atrial fibrillation; Z95.0 Presence of cardiac pacemaker

== ENCOUNTER → 2018-06-17 08:58 | Outpatient (CLI) | payer OTHER ==
[2018-03-24 10:21] VITALS: BMI 29.2
== END | disposition home or self-care (01) ==
LOC: D.CT 08:58
PROVIDERS: ATTEND Family Medicine
DX: R07.81 Pleurodynia (principal); R10.9 Unspecified abdominal pain

== ENCOUNTER → 2019-08-05 23:04 | Outpatient (CLI) | payer OTHER ==
[2018-03-24 10:21] VITALS: BMI 29.2
[2019-08-05 23:40] LABS: BASOPHILS 0.3 % (0-2); EOSINOPHILS 0.8 % (0-7); HEMATOCRIT 45.3 % (42.0-54.0); HEMOGLOBIN 14.6 g/dL (13.5-17.5); IMMATURE GRANULOCYTES 0.1 % (0-5); LYMPHOCYTES 9.6 % (15-50); MCH 30.5 pg (26.0-34.0); MCHC 32.2 g/dL (31.0-37.0); MCV 94.8 fL (80.0-100.0); MEAN PLATELET VOLUME 11.5 fL (7.4-10.4); MONOCYTES 8.1 % (2-11); NEUTROPHILS 81.1 % (40-80); RBC 4.78 10x6/uL (4.20-6.10); RDW 13.1 % (11.5-14.5); WBC 7.1 10x3/uL (4.8-10.8)
[2019-08-05 23:44] LABS: PLATELET COUNT 136 10x3/uL (130-400)
[2019-08-06 00:31] LABS: ALBUMIN 4.1 g/dL (3.4-5.0); ANION GAP 13.4 mmol/L (8-16); BILIRUBIN - TOTAL 0.97 mg/dL (0.2-1.3); CALCIUM 8.8 mg/dL (8.5-10.1); CARBON DIOXIDE 28.2 mmol/L (21.0-32.0); CREATININE - SERUM 1.2 mg/dL (0.6-1.3); POTASSIUM - SERUM 4.6 mmol/L (3.5-5.1); PROTEIN - SERUM 6.9 g/dL (6.4-8.2)
== END | disposition home or self-care (01) ==
LOC: D.LABREF 23:04
DX: R53.83 Other fatigue (principal); C61 Malignant neoplasm of prostate